=== PATIENT | female | born 1995 | race African-American/Black ===

== ENCOUNTER 2016-06-28 03:23 | Inpatient (IN) | payer OTHER ==
--- NOTE | ~2016-06-28 | US67 ---
[facility] A Service of [facility] RADIOLOGY TEXT RESULTS PATIENT: RAFAT MEAD LOCATION: C2A - : 95 UNIT #: [id number] AGE: [address]: Sal Daniels MD SEX: F ORDER DR: [id number] [address] [address] [id number] E MR#: [id number] Acc #: [id number] NAME: RAFAT MEAD : 1995 SEX: F STUDY DATE/TIME: 06/28/2016 8:09 UNIT: SED ROOM: STUDY DESCRIPTION: US Gallbladder Attending Physician: Alexi Yang M.D. Ordering Physician: Physician Non-Staff Primary Care Physician: Arnoldo Kirkpatrick M.D. MEDICAL IMAGING REPORT This report is preliminary unless electronic signature is present. EXAM Gallbladder ultrasound. DATE 06/28/2016 at 0809 HISTORY Abdominal pain for 24 hours. Abnormal appearance of the gallbladder on CT. Followup ultrasound was recommended. COMPARISON CT abdomen and pelvis, 06/28/2016. FINDINGS The pancreas is completely obscured by bowel gas. No focal liver lesions identified. Liver size is within normal limits, 17.4 cm in the long axis. The right kidney measures 11.4 cm in length without focal cortical lesion, shadowing stone, or hydronephrosis. Intrahepatic IVC has an unremarkable churchill-scale appearance. No ascites is seen. Small layering shadowing gallstones are present. An index gallstone measures up to 1.2 cm. The gallbladder wall is abnormally thickened up to 5-6 mm. No definite choledocholithiasis is seen. The common bile duct is very poorly visualized. No definite intrahepatic biliary ductal dilation is seen. The right kidney measures 11.4 cm in length without focal cortical lesion, shadowing stone, or hydronephrosis. IMPRESSION 1. Cholelithiasis. 2. Abnormal gallbladder wall thickening, worrisome for acute [facility] A Service of [facility] RADIOLOGY TEXT RESULTS PATIENT: RAFAT MEAD LOCATION: C2Yamilka : 95 UNIT #: [id number] AGE: [address]: Sal Daniels MD SEX: F ORDER DR: cholecystitis, corresponding to the CT abdomen performed on this same date. 3. The common bile duct is not satisfactorily visualized on this examination. No definite intrahepatic biliary ductal dilation. 4. The pancreas is obscured by bowel gas. Dictated by... Shelby Aguillon M.D. THIS IS AN ELECTRONICALLY VERIFIED REPORT Shelby Aguillon M.D. at 07/01/2016 8:37 AM [facility]/varun TD: 06/28/2016 10:52 JOB #: [id number] MEDICAL IMAGING REPORT Page 1 of 1
--- NOTE | ~2016-06-28 | OR ---
Unit #: [id number] #: [id number] Patient: RAFAT MEAD [id number] [address] [place], [place] [address] [id number] I MR#: [id number] NAME: RAFAT MEAD ROOM: 217 Date of Procedure: 06/29/2016 Admission Date: 06/28/2016 Surgeon: Sal Daniels Jr., M.D. : 1995 Attending Physician: Sal Daniels Jr., M.D. Primary Care Physician: Arnoldo Kirkpatrick M.D. OPERATIVE REPORT INDICATIONS FOR PROCEDURE The patient is a morbidly obese 20-year-old black female, who presented with complaints of lower back and upper back pain with evidence of probable acute cholecystitis. She has obvious cholelithiasis and is brought to the operating room at this time for laparoscopic cholecystectomy after getting IV antibiotics. PREOPERATIVE DIAGNOSIS Acute and chronic cholecystitis with cholelithiasis. POSTOPERATIVE DIAGNOSIS Acute and chronic cholecystitis with cholelithiasis noting subacute changes. ANESTHESIA General with endotracheal intubation and 0.5% Marcaine with epinephrine locally. PROCEDURE PERFORMED Laparoscopic cholecystectomy. DESCRIPTION OF PROCEDURE The patient was positioned in supine position. After being anesthetized and intubated, she was prepped and draped in routine fashion for laparoscopic cholecystectomy. A small supraumbilical incision was made and this was carried down to the fascia. Fascia lifted between 2 Alejandra clamps and Veress needle introduced in the abdomen. The abdomen was then inflated with CO2 gas. A 5-mm port was introduced in the abdomen followed by the camera. There was no evidence of any injury related to introduction of the port of the Veress needle. Brief intra-abdominal exploration was carried out. The patient noted to have a large globular liver. A chronically inflamed gallbladder by appearance. No other specific abnormalities. Two 5-mm ports were placed laterally and an 11-mm port just to the right of the upper midline. The gallbladder was lifted. Dissection was carried out in the triangle of Calot, cystic duct, which was only 1 to 2-mm in diameter, was isolated, hemoclipped x4, and divided a centimeter from its junction with the common duct. Cystic artery was identified, hemoclipped x3, and divided. The gallbladder was then removed from its bed with the hook cautery where there was one duct of Luschka noted, which was hemoclipped. After the gallbladder was freed up, it was placed in EndoCatch bag and brought out through the larger port site. It Unit #: [id number] #: [id number] Patient: RAFAT MEAD was sent to Pathology. The port was replaced. Subhepatic space checked. There was no evidence of any bleeding from the gallbladder bed. The clips on cystic duct and cystic artery were intact with no evidence of any leak or bleeding. After small amount of blood was removed with a sponge, it was packed in and brought directly out. Sponge count was correct x3. Ports removed. CO2 was expressed from the abdomen after the fascia in the larger port site was approximated with the neoClose technique. The port sites were injected with 0.5% Marcaine with epinephrine locally. The wounds were irrigated. After hemostasis achieved with Bovie cautery, the skin edges were approximated with stainless-steel skin clips and skin stapling device. Sterile dressings were applied externally. Estimated blood loss less than 75 mL. The patient received less than 1500 mL crystalloid solution during the procedure. Sponges and instrument counts were correct x3. No drains were used. No complications. The patient was taken to the recovery room with stable vital signs in satisfactory condition. Dictated by... Sal Daniels Jr., M.D. JMB/wayne TD: 06/29/2016 09:17 JOB #: [id number] OPERATIVE REPORT Page 1 of 1 X Sal Daniels MD X PROCEDURE OPERATIVE NOTE
--- NOTE | ~2016-06-28 | BMI ---
[facility] Nutrition Therapy DATE: 06/29/16 Patient: RAFAT MEAD Physician: RAFIQ Address: [address] [place] [address] Room/Bed: [address] [place] [address], Zip: [place] [address] Admit Date: 06/28/16 Date of : [birth year] Height: 5 7 Weight: 270 122.46 HIGH BMI NOTE: DX: 20 y/o female admitted with cholecystitis ANTHROPOMETRICS: Ht: 67", Wt: 122.5 kg, BMI: 42 (Stage III obese) DIET: Clear liquid INTERVENTION: Restricted diet, meds/fluids per MD RECOMMENDATIONS: Once medically feasible advance to healthy heart diet to promote a gradual weight loss towards a healthy BMI range. Respectfully, Lorie Hernandez RD, LD [facility] cc: client file
--- NOTE | ~2016-06-28 | DS ---
Unit #: [id number] #: [id number] Patient: RAFAT MEAD [id number] [address] [place], [place] [address] [id number] I MR#: [id number] NAME: RAFAT MEAD ROOM: 217 Age: 20 Sex: F Admission Date: 06/28/2016 : 1995 Discharge Date: 06/30/2016 Attending Physician: Sal Daniels Jr., M.D. Primary Care Physician: Arnoldo Kirkpatrick M.D. DISCHARGE SUMMARY ADMITTING AND FINAL DIAGNOSIS Acute cholecystitis and cholelithiasis. SECONDARY DIAGNOSES 1. One month . 2. Morbid obesity. OPERATIONS ON THIS ADMISSION Laparoscopic cholecystectomy on 06/29/16. BRIEF SUMMARY The patient is a morbidly obese, 20-year-old, black female who was admitted complaining of severe midepigastric and right upper quadrant abdominal pain and was noted to have evidence on workup of acute cholecystitis. She was treated with IV antibiotics and, yesterday, underwent laparoscopic cholecystectomy. Postop, she has done very well. She has had only mild pain. She has had no nausea and no vomiting. Tolerating a regular diet. Her abdomen is soft and mildly tender. Wound is clean and healing well. The a.m. labs are pending. The patient is afebrile and in a satisfactory condition. I am going to discharge the patient home. I will be checking her labs and she will be calling the office for a followup appointment for in approximately a week. She will be keeping her wounds clean and dry and limited lifting, no more than 5-10 pounds. Otherwise, normal activity. Dictated by... Sal Daniels Jr., M.D. [place]/katie TD: 07/02/2016 07:30 JOB #: [id number] Unit #: [id number] #: [id number] Patient: RAFAT MEAD DISCHARGE SUMMARY Page 1 of 1 X Sal Daniels MD X DISCHARGE SUMMARY
--- NOTE | ~2016-06-28 | HP ---
Unit #: [id number] #: [id number] Patient: RAFAT MEAD [id number] [address] [address] [id number] I MR#: [id number] NAME: RAFAT MEAD ROOM: 217 Age: 20 Sex: F Admission Date: 06/28/2016 : 1995 Attending Physician: Sal Daniels Jr., M.D. Primary Care Physician: Arnoldo Kirkpatrick M.D. HISTORY AND PHYSICAL CHIEF COMPLAINT Mid epigastric and right upper quadrant abdominal pain. HISTORY OF PRESENT ILLNESS The patient is a 23-year-old obese black female who presented to the emergency room complaining of severe upper abdominal pain with radiation around to the flank on the right. She had some associated nausea without vomiting and has had no previous similar symptoms. She had no fever, no chills, and no diarrhea or constipation. PAST MEDICAL HISTORY Serious illnesses none. PAST SURGICAL HISTORY None. SOCIAL HISTORY The patient is a nonsmoker and nondrinker. Has normal good appetite. No recent weight change. IMMUNIZATIONS Up to date. FAMILY HISTORY Noncontributory according to the patient. ALLERGIES No known drug allergies. TRANSFUSIONS None in the past. CURRENT MEDICATIONS None chronically. REVIEW OF SYSTEMS Twelve system review perform which was unremarkable except for that in history of present illness. The patient denies any past history for jaundice, hepatitis, pancreatitis or peptic ulcer disease. PHYSICAL EXAMINATION GENERAL: The patient is a well-developed, obese 21-year-old black female in no acute distress. VITALS: On admission, temperature 98.5, pulse 81, respiratory rate 18, Unit #: [id number] #: [id number] Patient: RAFAT MEAD blood pressure 141/94. HEENT: Unremarkable. NECK: Supple. LUNGS: Clear bilaterally. CHEST: Equal bilateral expansion with bilateral equal breath sounds. HEART: Regular rhythm without murmurs or gallops. No evidence of cardiomegaly clinically. ABDOMEN: Soft, mildly tender in the mid epigastrium and right upper quadrant without mass or orgnanoomgaly. No gross abdominal distention. No guarding or rebound. Active bowel sounds present. No evidence of ascites or hernias. EXTREMITIES: Full range of motion without limitation. No evidence of any peripheral edema. BACK: There is no CVA tenderness. NEUROLOGIC: Grossly intact. DIAGNOSTIC STUDIES IMAGING: CT scan and ultrasound are compatible with probably acute cholecystitis with cholelithiasis. LABORATORY: White blood cell count normal. ASSESSMENT The patient most likely has acute cholecystitis. There is some elevation of her LFTs. It is mild. PLAN We will go ahead with laparoscopic cholecystectomy under general anesthesia. The patient understands the procedure, including the risks including common duct injury, biliary leak and bleeding and intraabdominal organ injury and consents. Dictated by Sal Daniels Jr., M.D. JMB/jordi TD: 06/28/2016 14:42 JOB #: [id number] HISTORY AND PHYSICAL Page 1 of 1 X Sal Daniels MD X HISTORY AND PHYSICAL
--- NOTE | ~2016-06-28 | CT2 ---
[facility] A Service of [facility] & [facility] RADIOLOGY TEXT RESULTS PATIENT: RAFAT MEAD LOCATION: A 217-01 : [birth year] UNIT #: [id number] AGE: [address]: Sal Daniels MD SEX: F ORDER DR: [id number] [place] [id number] E MR#: [id number] Acc #: [id number] NAME: RAFAT MEAD : 1995 SEX: F STUDY DATE/TIME: 06/28/2016 05:31 UNIT: SED ROOM: STUDY DESCRIPTION: CT Abd and Pelv W Cont Attending Physician: Alexi Yang M.D. Ordering Physician: Obey Bland M.D. Primary Care Physician: Arnoldo Kirkpatrick M.D. MEDICAL IMAGING REPORT This report is preliminary unless electronic signature is present. EXAM CT abdomen and pelvis 06/28/2016 at 05:31 INDICATION Right flank pain and right upper quadrant pain that started tonight. Pain is 10/10. TECHNIQUE Axial images were obtained through the abdomen and pelvis following oral and IV contrast administration. Multiplanar reformats were obtained. No comparison. This CT examination was performed with one or more of the following radiation dose reduction techniques: automatic exposure control, adjustment of mA and/or kV according to patient size, and iterative reconstruction. FINDINGS ABDOMEN: The lung bases are clear. The gallbladder is abnormal. It has a thickened wall and there are some tiny stones within it. This is worrisome for acute cholecystitis. Consider followup with gallbladder ultrasound and/or HIDA scan. The solid organs are normal. No adenopathy is identified. GI tract is normal. PELVIS: The appendix is normal. Remainder of the GI tract is normal as well. Urinary bladder is normal. Solid pelvic organs are normal. Trace amount of dependent free fluid is probably physiologic in a female of this age. IMPRESSION 1. Thick walled gallbladder containing stones. This is highly suspicious for acute cholecystitis. Consider further evaluation with gallbladder ultrasound and/or HIDA scan. 2. The remainder of the abdomen and pelvis CT is normal, including the appendix. [facility] A Service of [facility] & [facility] RADIOLOGY TEXT RESULTS PATIENT: RAFAT MEAD LOCATION: [facility] 217-01 : [birth year] UNIT #: [id number] AGE: [address]: Sal Daniels MD SEX: F ORDER DR: Dictated by... Chito Martin Jr., M.D. THIS IS AN ELECTRONICALLY VERIFIED REPORT Chito Martin Jr., M.D. at 07/01/2016 7:24 AM NATAL[facility]/srinivasan TD: 06/28/2016 09:17 JOB #: [id number] MEDICAL IMAGING REPORT Page 1 of 1
[2016-06-28 02:45] LABS: URINE SOURCE CLEAN CATCH
[2016-06-28 02:48] LABS: URINE APPEARANCE CLEAR; URINE BILIRUBIN NEG (NEG); URINE BLOOD NEG (NEG); URINE COLOR YELLOW; URINE GLUCOSE NEG (NORM); URINE KETONE NEG (NEG); URINE NITRATE POS (NEG); URINE PROTEIN NEG (NEG); URINE SPECIFIC GRAVITY 1.015 (1.003-1.035); URINE UROBILINOGEN 0.2 MG/DL (NORM)
[2016-06-28 02:54] LABS: CULTURE INDICATED? YES; MICRO INDICATED? YES; URINE BACTERIA 1+ (NEG); URINE LEUKOCYTE ESTERASE TRACE (NEG); URINE RBC 0-2 /[HPF] (0-2)
[2016-06-28 02:55] LABS: URINE MUCUS PRESENT; URINE SQUAMOUS EPITHELIAL CELL MODERATE /[HPF]
[~2016-06-28 03:23] MED LIST: IRON1 TAB; MACROBID100 M1 PO; NAPROXEN250 MG PO; NO MEDICATIONS; PRENATAL1 TA1
[2016-06-28 03:53] LABS: BASOPHIL# 0.1 X10e3 (0-0.3); DIFF IND NO; EOSINOPHIL# 0.1 X10e3 (0-0.7); EOSINOPHIL% 1.2 % (0.0-7.0); HEMATOCRIT 36.7 % (35.0-45.0); HEMOGLOBIN 11.3 gm/dL (12.0-16.0); LYMPHOCYTE# 1.8 X10e3 (1.0-3.5); LYMPHOCYTE% 27.2 % (17.0-45.0); MEAN CELL VOLUME 82.3 FL (83-96); MEAN CORPUSCULAR HEMOGLOBIN 25.5 PG (28-34); MEAN CORPUSCULAR HGB CONC 30.9 g/dL (30-36); MEAN PLATELET VOLUME 8.3 FL (6.5-11.5); MONOCYTE# 0.4 X10e3 (0-1.0); MONOCYTE% 5.7 % (3.0-12.0); NEUTROPHIL# 4.4 X10e3 (1.5-7.1); NEUTROPHIL% 64.9 % (40-75); PLATELET COUNT 340 X10e3 (140-420); RED BLOOD COUNT 4.46 X10e (3.90-5.30); RED CELL DISTRIBUTION WIDTH 15.9 % (11.0-15.5); WHITE BLOOD COUNT 6.7 X10e3 (4.0-10.5)
[2016-06-28 04:15] LABS: ALBUMIN SERUM 3.8 g/dL (3.5-5.0); BILIRUBIN,TOTAL 0.4 mg/dL (0.2-2.0); POTASSIUM 4.3 mmol/L (3.5-5.1); PROTEIN TOTAL SERUM 7.7 g/dL (6.0-8.3)
[2016-06-28] MEDS ORDERED: NO MEDICATIONS (12:04)
[2016-06-29 11:21] LABS: HEMATOCRIT 39.3 % (35.0-45.0); HEMOGLOBIN 12.3 gm/dL (12.0-16.0); MEAN CELL VOLUME 81.5 FL (83-96); MEAN CORPUSCULAR HEMOGLOBIN 25.4 PG (28-34); MEAN CORPUSCULAR HGB CONC 31.2 g/dL (30-36); MEAN PLATELET VOLUME 9.4 FL (6.5-11.5); RED BLOOD COUNT 4.82 X10e (3.90-5.30); RED CELL DISTRIBUTION WIDTH 16.4 % (11.0-15.5)
[2016-06-29 11:22] LABS: WHITE BLOOD COUNT 12.2 X10e3 (4.0-10.5)
[2016-06-29 11:40] LABS: ALBUMIN SERUM 3.6 g/dL (3.5-5.0); BILIRUBIN,TOTAL 0.3 mg/dL (0.2-2.0); CALCIUM SERUM 9.4 mg/dL (8.4-10.2); POTASSIUM 4.9 mmol/L (3.5-5.1); PROTEIN TOTAL SERUM 7.6 g/dL (6.0-8.3)
[2016-06-30 05:59] LABS: HEMATOCRIT 31.4 % (35.0-45.0); MEAN CELL VOLUME 84.3 FL (83-96); MEAN CORPUSCULAR HGB CONC 29.7 g/dL (30-36); MEAN PLATELET VOLUME 9.8 FL (6.5-11.5); RED BLOOD COUNT 3.72 X10e (3.90-5.30); RED CELL DISTRIBUTION WIDTH 16.2 % (11.0-15.5); WHITE BLOOD COUNT 7.5 X10e3 (4.0-10.5)
[2016-06-30 06:17] LABS: HEMOGLOBIN 9.3 gm/dL (12.0-16.0)
[2016-06-30 07:23] LABS: ALBUMIN SERUM 3.4 g/dL (3.5-5.0); BILIRUBIN,TOTAL 0.4 mg/dL (0.2-2.0); BUN/CREATININE RATIO 7.27; CALCIUM SERUM 9.6 mg/dL (8.4-10.2); CREATININE SERUM 1.1 mg/dL (0.6-1.4); GLOM FILT RATE Estimated 83.7 mL/min (>60); PROTEIN TOTAL SERUM 7.2 g/dL (6.0-8.3)
[2016-06-30] MEDS ORDERED: HYDROCODON-ACE1 EAC5 PO (07:26)
== END 2016-06-30 09:52 | disposition home or self-care (01) | DRG 418 ==
LOC: SED 03:23 → CEDOF 09:40 → C2A 11:36
PROVIDERS: Emergency Medicine; Student in an Organized Health Care Education/Training Program; Surgery
PROC: 0FT44ZZ Resection of Gallbladder, Percutaneous Endoscopic Approach (ICD-10-PCS; principal; 2016-06-29)
DX: K80.12 Calculus of gallbladder with acute and chronic cholecystitis without obstruction (principal); Z68.41 Body mass index [BMI] 40.0-44.9, adult; E66.01 Morbid (severe) obesity due to excess calories
CPT/HCPCS: 36415; 74177; 76705; 80053; 81003; 84703; 85025; 85027; 87086; 87088; 87186; 88304; 96365; 96375; 99285; J0330; J1650; J1956; J2250; J2270; J2405; J2710; J3010; Q9967